=== PATIENT | male | born 1955 | race Caucasian/White ===

== ENCOUNTER → 2018-09-13 | Outpatient (CLI) | payer OTHER ==
[~2018-09-13] MED LIST: AMBIEN 5 MG TABL5 M1 PO; CENTRUM SILVER1 EAC4 PO; LIPITOR40 MG PO; LISINOPRIL20 MG PO; LOPRESSOR25 PO; NEXIUM40 MG PO; VITAMIN B-12500 MCG PO; VITAMINC500 PO; XANAX 0.5 MG0.5 MG PO
--- NOTE | 2018-09-14 07:53 | EKG ---
[place] [address] [address] [facility] [place] [address] ELECTROCARDIOGRAM REPORT Name: RUFINO LEMON Room #: [facility] [id number] ������������������ Admission: 09/13/18 ������������������ Attend Phys: Tino Shaw MD Discharge: ������������������ Date of : 55 Report #: [id number] ����������������������������������������������������������������� [id number] THIS REPORT FOR: //name// [facility] Test Date: 2018-09-13 Test Time: 06:25:11 Pat Name: RUFINO LEMON Department: Room: Gender: M [employer]: jared : 1955 Requested By: Tino Shaw Order Number: [id number] MD: Rob Vasquez Measurements Intervals [place] Rate: 72 P: 46 MN: 194 QRS: 3 QRSD: 145 T: 123 QT: 417 QTc: 457 Interpretive Statements Sinus rhythm Ventricular premature complex Left bundle branch block No previous ECG available for comparison Electronically Signed On 09-14-2018 7:53:05 CDT by Rob Vasquez [email or web address] ��������������������������������������������� <ELECTRONICALLY SIGNED> ���������������������������������������� By: Rob Vasquez MD, [facility] ��������������������������������������������� 09/14/18 [id number] 4 Rob Vasquez MD, FACC /EPI
== END | disposition home or self-care (01) ==
LOC: LITH 05:54
DX: N20.0 Calculus of kidney (principal); I10 Essential (primary) hypertension; Z98.890 Other specified postprocedural states